=== PATIENT | female | born 1990 | race Caucasian/White ===

== ENCOUNTER 2017-10-19 17:06 | Emergency (ER) | payer OTHER, MEDICAID ==
[~2017-10-19] VITALS: Ht 157.5 cm; Wt 68.0 kg
[~2017-10-19 17:06] MED LIST: ACETAMINOPHEN-1 EAC1 PO; AMOXICILLIN 50500 MG PO; BACTRIM DS TAB1 EACH PO; BACTROBAN15 GM TP; BENADRYL25 MG PO; ELIMITE60 GM TP; FIORICET 50-321 EACH PO; FLAGYL500 MG PO; HYDROCODONE-AP1 EAC6 PO; MEDROLDOSEPACK PO; MINIPRESS1 MG PO; NOHOMEMEDICATIONS; PHENERGAN 25 MG25 M1 PO; PRAZOSIN 1 MG CA1 M1; PREDNISONE 20 M20 M1 PO; REMERON15 MG PO; ROBITUSSIN-COU237 ML PO; SEROQUEL 50 MG50 MG; TRILEPTAL600 MG; ULTRAM 50MG TAB50 MG PO; VENTOLIN HFA 1818 GM INH; ZOFRAN ODT4 MG PO; ZPAK PO
[2017-10-19] MEDS ORDERED: TRAZODONE 150150 M1 PO (17:19)
[2017-10-19] MEDS ORDERED: ROBAXIN500 MG PO (18:12)
[2017-10-19] MEDS ORDERED: NAPROSYN500 MG PO (18:12)
[2017-10-19 18:20] VITALS: BP 160/99
== END 2017-10-19 18:21 | disposition home or self-care (01) ==
LOC: M.ERS 17:06
DX: S46.812A Strain of other muscles, fascia and tendons at shoulder and upper arm level, left arm, initial encounter (principal); F43.10 Post-traumatic stress disorder, unspecified; F41.9 Anxiety disorder, unspecified; F42.9 Obsessive-compulsive disorder, unspecified; F17.210 Nicotine dependence, cigarettes, uncomplicated; W18.39XA Other fall on same level, initial encounter; Y93.89 Activity, other specified; Y92.89 Other specified places as the place of occurrence of the external cause; Y99.8 Other external cause status

== ENCOUNTER 2021-03-21 07:53 | Emergency (ER) | payer OTHER, MEDICAID ==
[~2021-03-21] VITALS: Ht 160 cm; Wt 68.0 kg
[~2021-03-21 07:53] MED LIST changes: +NAPROSYN500 MG PO; +ROBAXIN500 MG PO; +TRAZODONE 150150 M1 PO
[2021-03-21] MEDS ORDERED: HYDROXYZINE HCL25 M2 PO (08:01)
[2021-03-21] MEDS ORDERED: ZESTRIL10 MG PO (08:02)
[2021-03-21 08:20] LABS: ABSOLUTE EOSINOPHILS 0.1 thou/uL (0.0-0.7); ABSOLUTE LYMPHOCYTES 1.4 thou/uL (0.8-5.3); ABSOLUTE MONOCYTES 0.5 thou/uL (0.0-1.2); ABSOLUTE NEUTROPHILS 6.5 thou/uL (1.6-8.1); BASOPHILS 0.3 %; EOSINOPHILS 1.4 %; HEMATOCRIT 40.6 % (37.0-47.0); HEMOGLOBIN 13.6 gm/dL (12.0-15.0); LYMPHOCYTES 16.4 %; MCH 28.6 pg (26.0-34.0); MCHC 33.5 g/dL (28.0-37.0); MCV 85.3 fL (80.0-100.0); MPV 7.6 fl. (7.2-11.1); NUCLEATED RBCS 0 /100WBC; PLATELET COUNT* 271 thou/uL (150-400); POLYS 75.9 %; RBC 4.76 mil/uL (4.20-5.00); RDW-CV 13.6 % (10.5-14.5); WBC 8.6 thou/uL (4.0-11.0)
[2021-03-21 08:32] LABS: CALCIUM 8.5 mg/dL (8.5-10.1); CREATININE 0.9 mg/dL (0.6-1.3)
[2021-03-21 08:44] LABS: ALBUMIN 4.2 g/dL (3.4-5.0); TOTAL BILIRUBIN 0.2 mg/dL (<0.1-1.0); TOTAL PROTEIN 7.8 g/dL (6.4-8.2)
[2021-03-21 09:00] LABS: URINE BILIRUBIN NEGATIVE (Negative); URINE BLOOD NEGATIVE (Negative); URINE CLARITY CLEAR; URINE COLOR YELLOW; URINE GLUCOSE-RANDOM NEGATIVE (Negative); URINE KETONES 1+ (Negative); URINE LEUKOCYTES-REFLEX NEGATIVE (Negative); URINE NITRITE-REFLEX NEGATIVE (Negative); URINE PROTEIN NEGATIVE (Negative); URINE SPECIFIC GRAVITY 1.025 (1.005-1.030); URINE UROBILINOGEN 0.2 E.U./dl (0.2-1.0)
[2021-03-21] MEDS ORDERED: PHENERGAN 25 MG25 M1 PO (09:50)
[2021-03-21 09:58] VITALS: BP 110/86
--- NOTE | 2021-03-21 10:38 | EKG ---
[place] [address] ELECTROCARDIOGRAM REPORT Name: JULIETTE BOWMAN Room: [facility]#: [id number] Admission: 03/21/21 Attend Phys: Discharge: 03/21/21 Date of : [birth year] Date of Service: 03/21/21827 Report #: [id number] THIS REPORT FOR: //name// [facility] ED Test Date: 2021-03-21 Test Time: 08:28:21 Pat Name: JULIETTE BOWMAN Department: Room: Gender: F Microcomputer Support Specialist: CARTER : 1990 Requested By: Luis Miguel Briceno Order Number: [id number] MD: Mark Lyon Measurements Intervals [place] Rate: 94 P: 9 NE: 148 QRS: 46 QRSD: 103 T: 31 QT: 375 QTc: 469 Interpretive Statements Sinus rhythm Low voltage, extremity leads Borderline prolonged QT interval No previous ECG available for comparison Electronically Signed On 03-21-2021 10:37:51 CDT by Mark Lyon [email or web address] <ELECTRONICALLY SIGNED> By: Mark Lyon MD, [facility] 03/21/21 1037 7 Mark Lyon MD, [facility] /EPI
== END 2021-03-21 10:00 | disposition home or self-care (01) ==
LOC: M.ERS 07:53
PROVIDERS: Emergency Medicine Emergency Medical Services
DX: F10.129 Alcohol abuse with intoxication, unspecified (principal); R11.2 Nausea with vomiting, unspecified; F17.210 Nicotine dependence, cigarettes, uncomplicated; Z98.890 Other specified postprocedural states; Y90.1 Blood alcohol level of 20-39 mg/100 ml

== ENCOUNTER 2021-04-07 08:59 | Emergency (ER) | payer OTHER, MEDICAID ==
[~2021-04-07] VITALS: Ht 160 cm; Wt 68.0 kg
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
[~2021-04-07 08:59] MED LIST changes: +HYDROXYZINE HCL25 M2 PO; +ZESTRIL10 MG PO
[2021-04-07 09:02] VITALS: BP 137/95
[2021-04-07] MEDS ORDERED: XANAX 0.25 MG0.25 MG PO (09:19)
== END 2021-04-07 09:34 | disposition home or self-care (01) ==
LOC: M.ERS 08:59
DX: F41.0 Panic disorder [episodic paroxysmal anxiety] (principal); R06.4 Hyperventilation; I10 Essential (primary) hypertension; F17.210 Nicotine dependence, cigarettes, uncomplicated; Z98.890 Other specified postprocedural states; Z98.51 Tubal ligation status; Z79.899 Other long term (current) drug therapy